=== PATIENT | male | born 1965 | race Caucasian/White ===

== ENCOUNTER 2019-06-27 10:34 | Emergency (ER) | payer OTHER, SELFPAY ==
[2019-06-27 10:54] VITALS: BP 158/98; PULSE 103; RESP 18; TEMP 36.6; O2SAT 97; BMI 31.4
--- NOTE | 2019-06-27 10:58 | XRR_ITS ---
PROCEDURE INFORMATION: Exam: XR Left Ankle Exam date and time: 06/27/2019 10:59 AM Age: 53 years old Clinical indication: Patient HX: Twisting injury to left foot/ankle yesterday. C/O pain worse with weight bearing. History of gout. ; Additional info: Trauma TECHNIQUE: Imaging protocol: XR Left ankle. Views: 3 or more views. COMPARISON: No relevant prior studies available. FINDINGS: Bones/joints: There is a subtle transverse lucency through the tip of the medial malleolus. There is no evidence of acute displaced fracture. The ankle mortise, talar dome and lateral process of the talus are intact. The base of the fifth metatarsal appears intact. There are mild degenerative changes at the tibiotalar joint. Moderate-sized calcaneal heel spur is noted at the Achilles insertion point. Soft tissues: There is mild circumferential soft tissue swelling. There is no significant ankle joint effusion. XR/XR ankle LT min 3V* [id number] IMPRESSION: 1. Subtle transverse lucency through the tip of the medial malleolus may reflect overlap versus subtle nondisplaced fracture. No other radiographic evidence of acute fracture. 2. Mild soft tissue swelling. 3. Achilles heel spur.
--- NOTE | 2019-06-27 10:58 | XRR_ITS ---
PROCEDURE INFORMATION: Exam: XR Left Foot Complete Exam date and time: 06/27/2019 10:59 AM Age: 53 years old Clinical indication: Patient HX: Twisting injury to left foot/ankle yesterday. C/O pain worse with weight bearing. History of gout. ; Additional info: Trauma TECHNIQUE: Imaging protocol: XR Left foot. Views: 3 or more views. COMPARISON: No relevant prior studies available. FINDINGS: Bones/joints: There is no evidence of acute displaced fracture. There is the suggestion of hallux valgus angulation with early bunion formation on nonweightbearing evaluation. There are mild degenerative changes at the 1st metatarsophalangeal joint. Subchondral cystic versus early erosive change is questioned along the medial aspect of the 1st metatarsal head. No other evidence of erosive change. Remaining joint space and alignment appears grossly preserved. Achilles heel spur is again noted. Soft tissues: There is moderate dorsal soft tissue swelling. XR/XR foot LT min 3V* [id number] IMPRESSION: 1. Dorsal soft tissue swelling without radiographic evidence of left foot fracture. 2. Mild degenerative change at the 1st metatarsophalangeal joint. There is mild subchondral cystic versus early erosive change along the head of the 1st metatarsal, which can be seen with inflammatory arthropathies to include gout.
--- NOTE | 2019-06-27 11:05 | ED_ITS ---
HPI - Extremity Injury (Lower) General: Chief Complaint: Extremity Injury, Lower Stated Complaint: Left foot pain Time Seen by Provider: 06/27/19 10:36 Source: patient Mode of arrival: ambulatory Limitations: no limitations History of Present Illness: HPI Narrative: Patient is a 53-year-old male who presents to ED today with complaints of left foot and ankle pain after an injury 2 days ago; patient states he twisted the ankle and then states his [employer] puppy ran into the ankle and knocked sideways; patient has been ambulatory with minimal weightbearing MD complaint: ankle injury and foot injury Onset (ago): day(s) Injury: Left: ankle and foot Type of Injury: inversion Place: home Severity: moderate Exacerbating factors: weight bearing, movement and palpation Associated symptoms: Reports no associated symptoms Other symptoms: none Review of Systems Musc: Reports: extremity pain, extremity swelling, joint pain and joint swelling Neuro: Denies: numbness in extremities or changes in sensation PFSH ED PFSH: Statuses (acute, chronic, etc) shown below reflect problem list status as previously entered and may not be historically accurate Social History Smoking and tobacco status: never smoked Physical Exam Const: COMMON NORMALS: no apparent distress, oriented x3, no limitations, alert and well nourished Extremity: OTHER: Patient has diffuse swelling throughout his left ankle and f oot; no redness, warmth, ecchymosis; seems to be mainly tender about his bilateral malleoli and fifth metatarsal; NV intact Neuro: COMMON NORMALS: oriented x3 SENSORIUM/ORIENTATION: Yes alert Course Vital Signs: Vital signs: Vital Signs Temperature 97.8 F 06/27/19 10:54 Pulse Rate 97 06/27/19 11:34 Respiratory Rate 16 06/27/19 11:34 Blood Pressure 136/98 06/27/19 11:34 Pulse Oximetry 95 06/27/19 11:34 MDM - Extremity Injury (Lower) Imaging Data^: L foot: Radiologist's impression: [address] [address] XRay Report Signed Patient: Adair Mcdonald Unit #: [id number] : 1965 Age/Sex: 53 / M ADM Date: 06/27/19 Loc: ER Room/Bed: Attending Dr: Ordering Provider/Ordering MD: Higgins,Sofía PA Date of Service: 06/27/19 Procedure(s): XR foot LT min 3V* [id number] Accession Number(s): [id number] Report Number: [id number] PROCEDURE INFORMATION: Exam: XR Left Foot Complete Exam date and time: 06/27/2019 10:59 AM Age: 53 years old Clinical indication: Patient HX: Twisting injury to left foot/ankle yesterday. C/O pain worse with weight bearing. History of gout. ; Additional info: Trauma TECHNIQUE: Imaging protocol: XR Left foot. Views: 3 or more views. COMPARISON: No relevant prior studies available. FINDINGS: Bones/joints: There is no evidence of acute displaced fracture. There is the suggestion of hallux valgus angulation with early bunion formation on nonweightbearing evaluation. There are mild degenerative changes at the 1st metatarsophalangeal joint. Subchondral cystic versus early erosive change is questioned along the medial aspect of the 1st metatarsal head. No other evidence of erosive change. Remaining joint space and alignment appears grossly preserved. Achilles heel spur is again noted. Soft tissues: There is moderate dorsal soft tissue swelling. XR/XR foot LT min 3V* [id number] IMPRESSION: 1. Dorsal soft tissue swelling without radiographic evidence of left foot fracture. 2. Mild degenerative change at the 1st metatarsophalangeal joint. There is mild subchondral cystic versus early erosive change along the head of the 1st metatarsal, which can be seen with inflammatory arthropathies to include gout. Dictated By: Zelalem Bonilla MD Signed By: Zelalem Bonilla MD Signed Date/Time: 06/27/19 1240 DD/ 1241 L ankle: Radiologist's impression: [address] [place] [address] XRay Report Signed with Addenda Patient: Adair Mcdonald Unit #: [id number] : 1965 Age/Sex: 53 / M ADM Date: 06/27/19 Loc: ER Room/Bed: Attending Dr: Ordering Provider/Ordering MD: Sofía Higgins Date of Service: 06/27/19 Procedure(s): XR ankle LT min 3V* [id number] Accession Number(s): [id number] Report Number: [id number] ADDENDUM XR/XR ankle LT min 3V* [id number] ADDENDUM: Comparison radiographs of the left ankle from 08/12/2017 are made available. The previously described subtle transverse lucency through the distal aspect of the medial malleolus is unchanged, compatible with overlap versus the sequela of remote trauma. No evidence of an acute osseous abnormality involving the left ankle. Addendum Dictated By: Zelalem Bonilla MD Addendum Signed By: Zelalem Bonilla MD Signed Date/Time: 06/27/19 1345 Addendum Cosigned By: PROCEDURE INFORMATION: Exam: XR Left Ankle Exam date and time: 06/27/2019 10:59 AM Age: 53 years old Clinical indication: Patient HX: Twisting injury to left foot/ankle yesterday. C/O pain worse with weight bearing. History of gout. ; Additional info: Trauma TECHNIQUE: Imaging protocol: XR Left ankle. Views: 3 or more views. COMPARISON: No relevant prior studies available. FINDINGS: Bones/joints: There is a subtle transverse lucency through the tip of the medial malleolus. There is no evidence of acute displaced fracture. The ankle mortise, talar dome and lateral process of the talus are intact. The base of the fifth metatarsal appears intact. There are mild degenerative changes at the tibiotalar joint. Moderate-sized calcaneal heel spur is noted at the Achilles insertion point. Soft tissues: There is mild circumferential soft tissue swelling. There is no significant ankle joint effusion. XR/XR ankle LT min 3V* [id number] IMPRESSION: 1. Subtle transverse lucency through the tip of the medial malleolus may reflect overlap versus subtle nondisplaced fracture. No other radiographic evidence of acute fracture. 2. Mild soft tissue swelling. 3. Achilles heel spur. Dictated By: Zelalem Bonilla MD Signed By: Zelalem Bonilla MD Signed Date/Time: 06/27/19 1236 DD/ 1237 Discharge Plan Discharge Patient Disposition: Home, Self-Care Clinical Impression: Ankle sprain and strain Condition: Stable Discharge Orders: Discharge Order (Routine); Ordered 06/27/19 Ordered By: Sofía Higgins Referrals: Ayo Springer APN [Primary Care Provider] - Discharge Activity: Increase activity as tolerated and Use walker/crutches as instructed Patient Instructions: Ankle Sprain (ED), RICE Therapy (ED) Discharge Date/Time: 06/27/19 11:30 Coding Level of Care Code ED Strap Buckler for Chg Fwd Exam Problem Focused
[2019-06-27 11:34] VITALS: BP 136/98; PULSE 97; RESP 16; O2SAT 95
== END 2019-06-27 11:30 | disposition home or self-care (01) ==
PROVIDERS: Emergency Provider Physician Assistant; Family Provider Nurse Practitioner Family; PCP Nurse Practitioner Family
DX: S93.402A Sprain of unspecified ligament of left ankle, initial encounter (principal); S96.912A Strain of unspecified muscle and tendon at ankle and foot level, left foot, initial encounter; X50.1XXA Overexertion from prolonged static or awkward postures, initial encounter
CPT/HCPCS: 73610; 73630; 99281; 99283

== ENCOUNTER 2020-12-22 15:58 | Emergency (ER) | payer OTHER, SELFPAY ==
[2020-12-22 17:43] VITALS: BP 151/96; PULSE 75; RESP 14; TEMP 36.7; O2SAT 97; BMI 35.2
--- NOTE | 2020-12-22 20:08 | XRR_ITS ---
PROCEDURE INFORMATION: Exam: XR Lumbosacral Spine Exam date and time: 12/22/2020 8:08 PM Age: 55 years old Clinical indication: Pain; Lumbago with sciatica; Right; Patient HX: HX of renal cancer; Additional info: Lumbar back pain radiating in right leg TECHNIQUE: Imaging protocol: XR of the lumbosacral spine. Views: 2 or 3 views. COMPARISON: CT Abdomen/Pelvis [facility] [address] 12/15/2014 11:24 AM FINDINGS: Bones/joints: The lumbar spine demonstrates moderate discogenic and apophyseal joint degenerative changes at multiple levels. No fractures. No aggressive lytic bone lesions. Mild leftward convex mid lumbar spine scoliosis. Soft tissues: Left abdomen surgical clips. XR/XR lumbar spine 2-3V* [id number] IMPRESSION: 1. No acute abnormality. 2. Negative for lumbar spine osseous malignancy.
--- NOTE | 2020-12-22 20:35 | ED_ITS ---
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 It seems to have worsened in the last week or so. This morning he got out of bed, and was supposed to go to work, but the pain dropped him to his knees. He had a call in. He comes in for investigation. He has not used any medication, as he does not like pain medication. No weakness. No significant paresthesias. No fever MD elicited complaint: back pain Pertinent past history: cancer (Renal) Onset (ago): week(s) Timing: intermittent and progressively worsening Severity: moderate Similar Symptoms Previously: No Quality: stabbing Location: lumbar spine Radiation: right upper leg Exacerbating factors: movement and walking Relieving factors: none Context: other Associated symptoms: Reports difficulty walking; Deny abdominal pain, dysuria, fecal incontinence, fever(s), nausea, tingling/numbness/burning or urinary frequency Review of Systems Const: Denies: fever(s) GI: Denies: abdominal pain, nausea or fecal incontinence : Denies: dysuria Neuro: Reports: difficulty walking [facility] ED PFSH: Family History (Updated 07/02/19 @ 12:18 by Tete Mckinley RN) Unknown No problems noted. Social History (Updated 07/02/19 @ 12:19 by Tete Mckinley RN) Smoking and tobacco status: never smoked Alcohol intake: never Marital status: Current occupational status: employed Physical Exam Const: COMMON NORMALS: no acute distress and patient oriented x3 GENERAL APPEARANCE: cooperative and comfortable Chest: COMMONS NORMALS: normal inspection of the chest Resp: COMMON NORMALS: normal respiratory effort and No use of accessory muscles Cardio: COMMON NORMALS: regular rate, regular rhythm and Peripheral pulses 2+ throughout RATE: regular rate RHYTHM: regular rhythm PERIPHERAL PULSES: Peripheral pulses 2+ throughout Back/Pelvis: OTHER: Midline L4-5 tenderness. Essentially negative straight leg raise testing. No deformity Neuro: COMMON NORMALS: patient oriented x3 Course Vital Signs: Vital signs: Vital Signs Temperature 98.0 F 12/22/20 17:43 Pulse Rate 75 12/22/20 17:43 Respiratory Rate 14 12/22/20 17:43 Blood Pressure 151/96 12/22/20 17:43 Pulse Oximetry 97 12/22/20 17:43 MDM - Back Pain/Injury MDM Narrative: Medical decision making narrative: X-ray shows a scoliotic curve, convex left with degenerative disc space narrowing on the right greater than left side at L4-L5. There is spondylitic change there. Likely the cause of his symptoms. Discharge Plan Discharge Patient Disposition: Home Clinical Impression: Lumbar radiculopathy Condition: Stable Prescriptions: New Medrol (Andrés) 4 mg tablets,dose pack See Rx Instructions .ROUTE .COMPLEX Qty: 21 RF: 0 methocarbamol 750 mg tablet 750 mg PO TID PRN (Reason: pain) Qty: 14 RF: 0 Discharge Orders: Discharge ED (Routine); Ordered 12/22/20 Ordered By: Freddie Bullard Referrals: Racheal Rollins APN [Primary Care Provider] - 4-7 days Patient Instructions: Lumbar Radiculopathy (ED) Activity Restrictions/Additional Instructions: Return to the emergency department for significant weakness of your lower extremities, loss of sensation near your groin or genital region, inability to control your bowel or bladder function, or other concerning symptoms. Medication as directed. Follow-up with your doctor, as further outpatient tests may be needed. Coding Level of Care Code ED Taping Supervisor for Chg Fwd Exam Expanded Problem Focused
== END 2020-12-22 20:58 | disposition home or self-care (01) ==
PROVIDERS: Emergency Provider Emergency Medicine; PCP Nurse Practitioner Family
DX: M54.16 Radiculopathy, lumbar region (principal)
CPT/HCPCS: 72100; 99282

== ENCOUNTER 2021-02-05 12:42 | Outpatient (CLI) | payer SELFPAY ==
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
== END 2021-02-05 12:43 | disposition home or self-care (01) ==
LOC: RAD 12:58
PROVIDERS: PCP Nurse Practitioner Family; Visit Provider Nurse Practitioner Family
DX: M25.511 Pain in right shoulder (principal); V89.2XXA Person injured in unspecified motor-vehicle accident, traffic, initial encounter; M19.012 Primary osteoarthritis, left shoulder; M50.323 Other cervical disc degeneration at C6-C7 level
CPT/HCPCS: 72040; 73030

== ENCOUNTER → 2021-03-22 10:24 | Outpatient (BNVA) | payer OTHER, SELFPAY | PROVIDERS: PCP Nurse Practitioner Family; Referring Provider Radiology Diagnostic Radiology; Visit Provider Orthopaedic Surgery | DX: M54.2 Cervicalgia (principal) | CPT/HCPCS: 72050 ==

== ENCOUNTER 2021-06-11 16:58 | Emergency (ER) | payer OTHER, SELFPAY ==
--- NOTE | 2021-06-11 17:03 | XRR_ITS ---
PROCEDURE INFORMATION: Exam: XR Lumbosacral Spine Exam date and time: 06/11/2021 5:03 PM Age: 55 years old Clinical indication: Injury or trauma; Fall; Blunt trauma (contusions or hematomas); Additional info: Fall, radiating pain to right hip TECHNIQUE: Imaging protocol: XR of the lumbosacral spine. Views: 2 or 3 views. COMPARISON: CR XR lumbar spine 2-3V* [id number] 12/22/2020 8:17 PM FINDINGS: Bones/joints: There is mild scoliosis concave to the right. There is decreased height of the L3-L4 disc space with prominent osteophytes on the right side not significantly changed. No lumbar fracture is identified. There does appear to be new fracture at the S1 level new compared with 12/22/2020. Please correlate with the patient's clinical symptoms. Soft tissues: There are surgical clips on the left side of the abdomen presumably from nephrectomy. XR/XR lumbar spine 2-3V* [id number] IMPRESSION: 1. Degenerative changes. 2. Suspicious for coccygeal fracture.
--- NOTE | 2021-06-11 17:03 | XRR_ITS ---
PROCEDURE INFORMATION: Exam: XR Right Hip Exam date and time: 06/11/2021 5:03 PM Age: 55 years old Clinical indication: Injury or trauma; Fall; Blunt trauma (contusions or hematomas); Right; Hip; Additional info: Fall, pain, include pelvis TECHNIQUE: Imaging protocol: XR Right hip. Views: 1 view hip with pelvis when performed. COMPARISON: CT Abdomen/[place]elvis o [id number] 12/15/2014 11:24 AM FINDINGS: Bones/joints: Degenerative changes in the right hip with some spurring from the acetabular margins. No fracture is identified. Soft tissues: Unremarkable. XR/XR hip RT 2-3V wo/w pel* [id number] IMPRESSION: 1. Degenerative changes. No fracture is identified. 2. No fracture is identified.
[2021-06-11 17:42] VITALS: PULSE 82; RESP 16; TEMP 36.7; O2SAT 98
--- NOTE | 2021-06-11 19:15 | ED_ITS ---
HPI - Fall General: Chief Complaint: Fall Stated Complaint: Fell and R hip in alot of pain Time Seen by Provider: 06/11/21 19:15 History of Present Illness: HPI Narrative: 55-year-old male patient comes in for injury secondary to a fall. Patient works for the [employer] slipped on some ice last night landing on his buttock and right side. Patient has had pain and discomfort to the right hip area. Patient is ambulatory. Patient appears well. Patient appears in mild pain. Review of Systems Musc: Reports: joint pain (Right hip pain) PFSH ED PFSH: Family History Unknown No problems noted. Social History (Reviewed 03/22/21 @ 10: by Shahrzad Hayward LPN) Smoking and tobacco status: never smoked Alcohol intake: never Marital status: Current occupational status: employed Physical Exam Const: COMMON NORMALS: healthy appearing Resp: COMMON NORMALS: normal respiratory effort Cardio: COMMON NORMALS: regular rate and regular rhythm RATE: regular rate RHYTHM: regular rhythm Back/Pelvis: THORACIC SPINE/UPPER BACK: No thoracic spinal tenderness LUMBAR SPINE/LOWER BACK: No lumbar spinal tenderness SACRUM: tenderness Extremity: RIGHT LOWER EXTREMITY: Yes hip joint Right hip: Yes inspection and Yes palpation (No palpable tenderness to the hip) Course Vital Signs: Vital signs: Vital Signs Temperature 98.1 F 06/11/21 17:42 Pulse Rate 82 06/11/21 17:42 Respiratory Rate 16 06/11/21 19:27 Pulse Oximetry 98 06/11/21 17:42 MDM - Fall MDM Narrative: Medical decision making narrative: 55-year-old male patient comes in today with injury secondary to a slip on the ice and fall to the ground. Patient is ambulatory. Patient reports some right hip discomfort. On exam patient has good range of motion of the hip. Patient does have some sacral tenderness. Vital signs are normal. Differential diagnosis includes fracture, contusion, sprain. X-ray of the hip was unremarkable. X-ray of the LS-spine noted a possible coccygeal fracture. I reviewed this with patient reported no prior injury to the coccyx. I believe patient might have a new coccygeal fracture. I reviewed recommendations of treatment with supportive seating and acetaminophen for pain. Patient is unable to take ibuprofen due to a prior renal injury. Patient reported understanding and agreed to plan need for follow-up or return to the ER. Discharge Plan Discharge Patient Disposition: Home Clinical Impression: Closed coccygeal fracture Qualifiers: Encounter type: initial encounter Qualified Code(s): S32.2XXA - Fracture of coccyx, initial encounter for closed fracture Condition: Stable Discharge Orders: Discharge ED (Routine); Ordered 06/11/21 Ordered By: Juliocesar Young Referrals: Racheal Rollins APN [Primary Care Provider] - Discharge Diet: Usual diet Discharge Activity: Increase activity as tolerated Patient Instructions: Coccyx Injury (ED) Activity Restrictions/Additional Instructions: Acetaminophen as needed for pain. Use a good cushion. Follow-up with primary care for further instruction. Return to the ER for new concerns. Coding Level of Care Code ED Client Reporting Associate for Lala Mahan
[2021-06-11 19:27] VITALS: RESP 16
== END 2021-06-11 19:28 | disposition home or self-care (01) ==
PROVIDERS: Emergency Provider Nurse Practitioner Family; PCP Nurse Practitioner Family
DX: S32.2XXA Fracture of coccyx, initial encounter for closed fracture (principal); W00.0XXA Fall on same level due to ice and snow, initial encounter
CPT/HCPCS: 72100; 73502; 99282

== ENCOUNTER 2021-08-08 12:06 | Emergency (ER) | payer OTHER, SELFPAY ==
[2021-08-08 12:16] VITALS: BP 149/91; PULSE 79; RESP 18; TEMP 36.8; O2SAT 98; BMI 33.4
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
--- NOTE | 2021-08-08 12:58 | PC.NURSE ---
Patient stated that incident was not workers comp and that it was FMLA. Per Margarita Teixeira LPN.
== END 2021-08-08 13:41 | disposition home or self-care (01) ==
PROVIDERS: Emergency Provider Nurse Practitioner Family; PCP Nurse Practitioner Family
DX: S39.012A Strain of muscle, fascia and tendon of lower back, initial encounter (principal); S29.012A Strain of muscle and tendon of back wall of thorax, initial encounter; X58.XXXA Exposure to other specified factors, initial encounter; Y99.0 Civilian activity done for income or pay
CPT/HCPCS: 72040; 72072; 99282

== ENCOUNTER 2022-01-07 15:42 | Outpatient (CLI) | payer OTHER, SELFPAY ==
--- NOTE | 2022-01-07 16:24 | XRR_ITS ---
PROCEDURE INFORMATION: Exam: XR Right Foot Exam date and time: 01/07/2022 4:23 PM Age: 56 years old Clinical indication: Pain and injury or trauma; Fall; Blunt trauma; Injury details: HX of renal cancer; Patient HX: --pain top of right foot, worse last 2 days after PT got foot caught on board and fell; Additional info: Right foot pain TECHNIQUE: Imaging protocol: Radiologic exam of the Right foot. Views: 3 or more views. COMPARISON: CR Foot 3 views, RIGHT* [id number] 11/11/2017 1:35 PM FINDINGS: Bones/joints: Osseous structures are intact. Negative for fracture. Similar appearance of mixed lucent/sclerotic change along the medial aspect of the 1st metatarsal head. Soft tissues: Normal. XR/XR foot RT min 3V* [id number] IMPRESSION: No acute findings.
== END 2022-01-07 15:43 | disposition home or self-care (01) ==
PROVIDERS: PCP Nurse Practitioner Family; Visit Provider Nurse Practitioner Family
DX: M79.671 Pain in right foot (principal)
CPT/HCPCS: 73630

== ENCOUNTER 2022-12-17 15:24 | Emergency (ER) | payer OTHER, SELFPAY ==
[2022-12-17 15:33] VITALS: BP 147/90; PULSE 81; RESP 18; TEMP 36.4; O2SAT 97; BMI 31.3
--- NOTE | 2022-12-17 17:22 | W.ED.ANIMALB ---
HPI - Animal Bite General: Chief Complaint: Animal Bite Stated Complaint: stung on right side of face by wasp Time Seen by Provider: 12/17/22 16:30 Source: patient Mode of arrival: ambulatory History of Present Illness: 57-year-old male presents emergency room states he was stung on the right cheek with a wasp. No difficulties speaking swallowing or breathing no wheezing he did take some hjdo-ddt-qxcsiup Benadryl at home for it. Onset (ago): minute(s) Pain description: burning Associated symptoms: Deny bleeding, cough, diaphoresis, erythema, headache(s), numbness, rash, short of breath, syncope or weakness Review of Systems Const: Denies: diaphoresis ENMT: Denies: throat pain, ear or mastoid pain or nasal congestion Card: Denies: chest pain, palpitations or syncope Resp: Denies: dyspnea, productive cough or non-productive cough GI: Denies: abdominal pain, nausea or vomiting : Denies: flank pain, dysuria, urinary frequency or urinary urgency Skin/Breast: Denies: rash or pruritus Neuro: Denies: headache(s) PFSH ED PFSH: Family History Unknown No problems noted. Social History Smoking and tobacco status: never smoked Alcohol intake: never Substance/Drug Use: never Marital status: Current occupational status: employed Physical Exam Const: GENERAL APPEARANCE: cooperative and comfortable ORIENTATION/CONSCIOUSNESS: Yes awake, Yes oriented to person, Yes oriented to place and Yes oriented to time HENMT: COMMON NORMALS: normocephalic, atraumatic and hearing grossly normal bilaterally HEAD & SCALP: normocephalic and atraumatic Resp: COMMON NORMALS: normal respiratory effort, No retractions, No use of accessory muscles and clear to auscultation bilaterally AUSCULTATION: clear to auscultation bilaterally Cardio: COMMON NORMALS: regular rate, regular rhythm and No murmurs present (Cardio) RATE: regular rate RHYTHM: regular rhythm Extremity: COMMON NORMALS: normal to inspection, capillary refill normal, no clubbing, cyanosis or edema, no calf tenderness and no pedal edema Neuro: SENSORIUM/ORIENTATION: Yes oriented to person, Yes oriented to place and Yes oriented to time Skin: COMMON NORMALS: no rashes or lesions noted GENERAL SKIN EXAM: no rashes or lesions noted and no erythema Course Vital Signs: Vital signs: Vital Signs Temperature 97.5 F L 12/17/22 15:33 Pulse Rate 81 12/17/22 15:33 Respiratory Rate 18 12/17/22 15:33 Blood Pressure 147/90 12/17/22 15:33 Pulse Oximetry 97 12/17/22 15:33 Oxygen Delivery Me thod Room Air 12/17/22 15:33 MDM - Animal Bite Medical Decision Making Localized reaction to an insect bite. We will give dexamethasone single dose start oral steroid taper tomorrow use titk-zhg-jpeoosq Benadryl as needed can apply ice. Follow-up as needed Medical Records I reviewed the patient's medical records. Lab Data I reviewed the patient's lab results. Discharge Plan Discharge Patient Disposition: Home Clinical Impression: Insect bite Condition: Stable Prescriptions: New Medrol (Andrés) 4 mg tablets,dose pack See Rx Instructions .ROUTE .COMPLEX Qty: 21 0RF Rx Instructions: orally per package directions No Action Celebrex 100 mg capsule 100 mg PO BID Qty: 20 0RF cyclobenzaprine 5 mg tablet 5 mg PO TID PRN (Reason: muscle spasm) Qty: 10 0RF Discharge Orders: Discharge ED (Routine); Ordered 12/17/22 Ordered By: Sandip Barry Referrals: Racheal Rollins APN [Primary Care Provider] - Discharge Diet: Usual diet Discharge Activity: Resume usual activity Patient Instructions: Insect Bite or Sting (ED), Opioid Safety, Pain Management Activity Restrictions/Additional Instructions: You are seen today after an insect bite on the right cheek. You can use ice and qhvs-ooy-vlgnmyb antihistamines such as Tylenol or cetirizine. You were given a single dose of IM steroid and given a prescription for oral steroids to begin tomorrow. Follow-up with your primary care doctor as needed. Is likely the area will be swollen and tender to the touch for the next several days. Coding Level of Care Code ED Deputy Chief Executive for Lala Mahan
[2022-12-17] MEDS: dexamethasone 10 mg/mL INJ IM (17:58)
== END 2022-12-17 18:02 | disposition home or self-care (01) ==
PROVIDERS: Emergency Provider Family Medicine; PCP Nurse Practitioner Family
DX: T63.461A Toxic effect of venom of wasps, accidental (unintentional), initial encounter (principal)
CPT/HCPCS: 96372; 99284; J1100

== ENCOUNTER 2023-05-31 08:00 | Emergency (ER) | payer OTHER, SELFPAY ==
[2023-05-31 08:00] VITALS: BP 148/91; PULSE 87; RESP 16; TEMP 36.8; O2SAT 94
--- NOTE | 2023-05-31 08:17 | XRR_ITS ---
PROCEDURE INFORMATION: Exam: XR Left Knee Exam date and time: 05/31/2023 8:39 AM Age: 57 years old Clinical indication: Pain; Knee; Left TECHNIQUE: Imaging protocol: Radiologic exam of the left knee. Views: 3 views. COMPARISON: CR (LOW EXM, ) 05/31/2023 8:39 AM FINDINGS: Bones/joints: There are irregular lucencies seen traversing the proximal aspect of the inferior anterior patella bone spur.. This finding is suspicious for nondisplaced fracture. Smaller bone spurs seen in the anterior superior aspect of the patella. Soft tissues: Unremarkable XR/XR knee LT 3V* [id number] IMPRESSION: 1. Transverse nondisplaced fracture proximal aspect anterior infrapatellar bone spur 2. Otherwise negative examination
--- NOTE | 2023-05-31 08:17 | XRR_ITS ---
PROCEDURE INFORMATION: Exam: XR Left Ankle Exam date and time: 05/31/2023 8:39 AM Age: 57 years old Clinical indication: Pain; Ankle; Left TECHNIQUE: Imaging protocol: Radiologic exam of the left ankle. Views: 3 or more views. COMPARISON: CR (LOW EXM, ) 05/31/2023 8:39 AM FINDINGS: Bones/joints: Negative for acute bony abnormality. Soft tissues: Normal. XR/XR ankle LT min 3V* [id number] IMPRESSION: No acute findings.
--- NOTE | 2023-05-31 08:17 | XRR_ITS ---
PROCEDURE INFORMATION: Exam: XR Right Ankle Exam date and time: 05/31/2023 8:43 AM Age: 57 years old Clinical indication: Pain; Ankle; Right TECHNIQUE: Imaging protocol: Radiologic exam of the right ankle. Views: 3 or more views. COMPARISON: CR XR foot RT min 3V* [id number] 01/07/2022 4:23 PM FINDINGS: Bones/joints: Normal. Soft tissues: Normal. XR/XR ankle RT min 3V* [id number] IMPRESSION: Negative for acute bony abnormality.
--- NOTE | 2023-05-31 08:42 | W.ED.EXTPRO ---
HPI - Extremity Problem General: Chief complaint: Extremity Problem,Nontraumatic Stated complaint: KNEE PAIN Time Seen by Provider: 05/31/23 08:01 Source: patient Mode of arrival: EMS History of Present Illness: 57-year-old male presents to the emergency room with complaints of multiple joint pain in the lower extremities. He is complaining of left foot right ankle and foot pain as well as left knee. No trauma. He has noticed redness on the left foot. Since that is affecting both lower extremities he has not been able to walk this morning is been progressively worsening he is taken some home remedies for gout but not any prescription remedies MD Complaint: joint pain Pain Consistency: constant Location: left, right and lower extremity Quality: sharp Relieving factors: nothing Exacerbating factors: nothing Associated symptoms: Deny chest pain, fever(s) or rash Review of Systems Const: Denies: fever(s) or chills Card: Denies: chest pain Resp: Denies: dyspnea GI: Denies: abdominal pain : Denies: dysuria, urinary frequency or urinary urgency Musc: Denies: neck pain or back pain Skin/Breast: Denies: rash PFSH ED PFSH: Family History Unknown No problems noted. Social History Smoking and tobacco/nicotine status: never used tobacco/nicotine Alcohol intake: never Substance/Drug Use: never Marital status: Current occupational status: employed Physical Exam Const: GENERAL APPEARANCE: cooperative and comfortable ORIENTATION/CONSCIOUSNESS: Yes awake, Yes oriented to person, Yes oriented to place and Yes oriented to time HENMT: COMMON NORMALS: normocephalic, atraumatic and hearing grossly normal bilaterally HEAD & SCALP: normocephalic and atraumatic Resp: COMMON NORMALS: normal respiratory effort, No retractions, No use of accessory muscles and clear to auscultation bilaterally AUSCULTATION: clear to auscultation bilaterally Cardio: COMMON NORMALS: regular rate, regular rhythm and No murmurs present (Cardio) RATE: regular rate RHYTHM: regular rhythm Extremity: OTHER: Mild erythema and exquisite tenderness to touch on the right foot over the lateral portion any movement of the forefoot at the tarsometatarsal joint causes significant discomfort. Neuro: SENSORIUM/ORIENTATION: Yes oriented to person, Yes oriented to place and Yes oriented to time Skin: COMMON NORMALS: no rashes or lesions noted GENERAL SKIN EXAM: no rashes or lesions noted Course Vital Signs: Vital signs: Vital Signs Temperature 98.3 F 05/31/23 08:00 Pulse Rate 87 05/31/23 08:00 Respiratory Rate 16 05/31/23 08:00 Blood Pressure 148/91 05/31/23 08:00 Pulse Oximetry 94 05/31/23 08:00 Oxygen Delivery Me thod Room Air 05/31/23 08:00 MDM - Extremity (Nontraumatic) Medical Decision Making Peers to be an old fracture of the left patella but no other acute fractures patient has exquisite tenderness with any movement or even light touch to the affected joints that he outlined small joint effusions present acute Zhen arthritis treat with steroids he cannot use anti-inflammatories because of his chronic kidney disease give tramadol for pain as well follow-up with his primary care doctor Medical Records I reviewed the patient's medical records. Lab Data I reviewed the patient's lab results. XR interpretation done by ED provider, pending radiology final review Discharge Plan Discharge Patient Disposition: Home Clinical Impression: Gouty arthritis Condition: Stable Prescriptions: New prednisone 20 mg tablet 20 mg PO TID Qty: 15 0RF Rx Instructions: 1 p.o. 3 times daily x3 days, 1 p.o. twice daily x2 days, 1 p.o. daily x2 days tramadol 50 mg tablet 50 mg PO Q6H PRN (Reason: pain) Qty: 20 0RF No Action Celebrex 100 mg capsule 100 mg PO BID Qty: 20 0RF cyclobenzaprine 5 mg tablet 5 mg PO TID PRN (Reason: muscle spasm) Qty: 10 0RF Medrol (Andrés) 4 mg tablets,dose pack See Rx Instructions .ROUTE .COMPLEX Qty: 21 0RF Rx Instructions: orally per package directions Discharge Orders: Discharge ED (Routine); Ordered 05/31/23 Ordered By: Sandip Barry Referrals: Racheal Rollins APN [Primary Care Provider] - Discharge Diet: Usual diet Discharge Activity: Increase activity as tolerated Patient Instructions: Gout (ED), Opioid Safety, Pain Management Activity Restrictions/Additional Instructions: [facility]. Please realize this is an emergency room and that we are providing you with a medical screening exam and this may not be complete and all inclusive of all the testing and or work up that you may need to determine your ailment or severity of your illness. It is very important that you follow up as instructed or that you return to the Emergency Department should you have concerns or if your condition changes or worsens in any way. You are seen today for joint aches and pains. He did appear to have an old fracture of the left patella but otherwise no acute injury or fractures are noted on the x-rays. Suspect this is a gouty flare. Recommend that you use steroid taper starting this evening he has tramadol as needed for pain. Avoid ibuprofen or indomethacin due to chronic kidney disease. Follow-up with your primary care doctor if not improving. Coding Level of Care Code ED Electrical Tester for Lala Mahan
[2023-05-31 09:18] VITALS: BP 148/91; PULSE 87; RESP 16; TEMP 36.8; O2SAT 94
== END 2023-05-31 09:22 | disposition home or self-care (01) ==
PROVIDERS: Emergency Provider Family Medicine; PCP Nurse Practitioner Family
DX: M10.9 Gout, unspecified (principal)
CPT/HCPCS: 73562; 73610; 96374; 99284; E0114; J2930

== ENCOUNTER 2025-05-20 11:08 | Emergency (ER) | payer SELFPAY ==
--- OUTSIDE RECORDS SUMMARY | 2025-05-20 11:16 | XMS_ITS | Patient Health Record ---
Author Organization [facility] Address [address] [place] [address] Care Team Providers Care Camera Tuning Engineer Name Role Phone [facility] Primary Care Provider [phone] [facility] Unavailable Unavailable Allergies Allergen (clinical drug ingredient) Drug/Non Drug Allergy documented on EMR Reaction Allergy Type Onset Date Status erythromycin Erythromycin Unknown Drug Allergy A ctive Penicillin Unknown Drug Allergy Active Reason For Referral No Information Medications Medication SIG (Take, Route, Frequency, Duration) Notes Start Date End Date Status Acetaminophen 500 MG Tablet 1 tablet as needed Orally every 6 hrs Active Testosterone Cypionate 200 mg/mL Solution inject 1ML INTRAMUSCULARLY EVERY TWO WEEKS in clinic for 28 days; Duration: 14 02/10/2023 Active Gabapentin 300 MG Capsule 1 capsule Oral ly twice a day; Duration: 30 days Active traMADol HCl 50 MG Tablet 1 tab Orally q 4 hours prn severe pain; Duration: 30 days 02/17/2023 Active Social History Tobacco Use: Social History Observation Description Date Details (start date - stop date) Never Smoker NA - NA Social History Tobacco Use: Social Info Question Answer Notes xTobacco Use/Smoking Are you a nonsmoker Section Notes: 12/18/21 12/18/21 06-12-22 PHQ9 12/18/21 06-12-22 PHQ9 Tobacco - Nonsmoker Alcohol - never Caffeine - daily soda and energy drink once or twice a week Depression screen completed 11/18/2022 score 1 Tobacco - Nonsmoker Alcohol - never Caffeine - daily soda and energy drink once or twice a week Depression screen completed 11/18/2022 score 1 Tobacco - Nonsmoker Alcohol - never Caffeine - daily soda and energy drink once or twice a week Depression screen completed 11/18/2022 score 1 Tobacco - Nonsmoker Alcohol - never Caffeine - daily soda and energy drink once or twice a week Depression screen completed 11/18/2022 score 1 Tobacco - Nonsmoker Alcohol - never Caffeine - daily soda and energy drink once or twice a week 12/18/21 12/18/21 12/18/21 12/18/21 12/18/21 Problems Problem Type SNOMED Code ICD Code Onset Dates Problem Status W/U Status Risk Notes Problem Testicular hypofunction (536872120) Testicular hypofunction (E29.1) Active confirmed Problem Neck pain (05860257) Neck pain (M54.2) Active confirmed Problem Hearing loss (61839430) Hearing loss, unspecified hearing loss type, unspecified laterality (H91.90) Active confirmed Problem Sciatica (24109839) Acute right-sided low back pain with right-sided sciatica (M54.41) Active confirmed Problem Displacement of cervical intervertebral disc without myelopathy (51245530) Bulging of cervical intervertebral disc (M50.20) Active confirmed Problem Muscle spasm (49661375) Muscle spasm (M62.838) Active confirmed Problem Gout (20107739) Acute gout of right foot, unspecified cause (M10.9) Active confirmed Problem Pain in thoracic spine (037397560) Acute bilateral thoracic back pain (M54.6) Active confirmed Problem Gout (03897818) Acute gout of left foot, unspecified cause (M10.9) Active confirmed Problem Shoulder joint pain (525332482) Right shoulder pain, unspecified chronicity (M25.511) Active confirmed Problem Malignant tumor of kidney (785423898) Renal cell carcinoma of left kidney (C64.2) Active confirmed Problem Degeneration of lumbar intervertebral disc (75004738) Disc degeneration, lumbar (M51.36) Active confirmed Problem Primary malignant neoplasm of kidney (41839151) Malignant neoplasm of kidney excluding renal pelvis, unspecified laterality (C64.9) Active confirmed Problem Arthropathy of lumbar facet joint (disorder) (470508015) Facet arthropathy, lumbar (M47.816) Active confirmed Problem MRI Scan Abnormal (580791115) Abnormal MRI (R93.89) Active confirmed Problem Primary osteoarthritis (360364325) Primary osteoarthritis involving multiple joints (M15.9) Active confirmed Plan Of Treatment Pending Test Test Name Order Date Electrocardiogram 12 Lead Tracing (EKG)- 11972 10/08/2021 Insurance Providers Payer Name Payer Address Payer Phone Subscriber Number Group Number Insured Name Patient Relationship to Insured Coverage Start Date Coverage End Date [facility] [employer] [address] [address] [place] [address] [id number] Self - patient is the insured Medications Administered Medication Instructions Date of Administration Dosage Notes DEPO-Medrol 08/14/2021 40 mg [facility]: [address]-41 Patient tolerated well, advised to wait 20 min at clinic DEPO-Medrol 12/18/2021 40 mg [id number] [id number] Depo-Testosterone 09/17/2021 200 mg Vial br ought to clinic by patient from pharmacy [facility] [id number] Pt tolerated well/instructed to wait 20 min dexAMETHasone 12/18/2021 4 mg [facility]-[id number] 239-30 dexAMETHasone 08/14/2021 4 mg [facility]: 03911-755-77 patient tolerated well, advised to wait 20 min at clinic dexAMETHasone 06/12/2022 8 mg [facility]-19880-7 239-30 Patient tolerated well IM - Patient Supplied Med 01/14/2022 testosterone 200mg/ml given IM in left hip. patient tolerated well [id number] IM - Patient Supplied Med 02/19/2022 testosterone 200mg/ml given in right hip, patient tolerated well, [id number] IM - Patient Supplied Med 08/07/2022 [id number] Patient tolerated well. [id number] IM - Patient Supplied Med 12/02/2022 Testosterone 200mg given in left hip. Patient tolerated well. [id number] Ketorolac Tromethamine 08/14/2021 60 mg ND: [id number] Patient tolerated well, advised to wait 20 min at clinic Ketorolac Tromethamine 12/18/2021 60 mg nd [id number] Ketorolac Tromethamine 01/14/2022 60 mg nd [id number] Ketorolac Tromethamine 01/24/2022 60 mg [id number] Ketorolac Tromethamine 06/12/2022 60 mg [id number] Patient tolerated well Testosterone 08/14/2021 200 mg medicine bro ught to clinic by patient from pharmacy for injection. Patient tolerated well, advised to wait 20 min at clinic Testosterone 11/09/2021 200 mg ND: [id number] Medication brought to clinic with patient from pharmacy. Patient tolerated well, advised to wait 20 min at clinic Testosterone Cypionate 02/17/2023 200 ug vi al brought to clinic by patient/pt tolerated well/instructed to wait 20 min Medical (General) History Medical History History ICD Code chronic renal insufficiency Gout renal cell cancer Back Trouble Surgical History Surgery Date(Month/Year) nephrectomy left 2009 Cervical fusion c 5,6,7 2021 Hospitalization History Reason Date(Month/Year) Surgical Hx
--- OUTSIDE RECORDS SUMMARY | 2025-05-20 11:16 | XMS_ITS | Clinical Summary ---
Author Organization [facility] Facility Address [address] [place] [address] Care Team Providers Care Sex Crimes Detective Name Role Phone Unavailable Primary Care Provider Unavailabl e Social History Tobacco Use Types Packs/Day Years Used Date Smoking Tobacco: Never Sex and Gender Information Value Date Recorded Sex Assigned at Not on file Legal Sex Male 12:44 PM EST Gender Identity Not on file Sexual Orientation Not on file Plan of Treatment Health Maintenance Due Date Last Done Comments Hepatitis B Vaccine (1 of 3 - 19+ 3-dose series) 08/20 Pneumococcal Vaccine: 50+ Years (1 of 2 - PCV) 987 Colorectal Cancer Screening: Annual FOBT 08/20/2016 Colorectal Cancer Screening: Colonoscopy 08/20/2016 Colorectal Cancer Screening: Sigmoidoscopy 08/20/2016 Influenza Vaccine (#1) 2025 Insurance RR [address] [place] [address] [facility]
--- OUTSIDE RECORDS SUMMARY | 2025-05-20 11:16 | XMS_ITS | Encounter Summary ---
Author Organization [place] [facility], [facility] Address [address] [place] [address] Phone Care Team Providers Care Administrative Services Coordinator Name Role Phone Unavailable Primary Care Provider Unavailabl e Encounter Details Date Type Department Care Team (Late st Contact Info) Description 05/29/2021 Orders Only [facility] [address] [place] [address] Renal insufficiency; Renal cell carcinoma <Unspecified side> (HCC) Social History Tobacco Use Types Packs/Day Years Used Date Smoking Tobacco: Never Sex and Gender Information Value Date Recorded Sex Assigned at Not on file Legal Sex Male 12:44 PM EST Gender Identity Not on file Sexual Orientation Not on file documented as of this encounter Plan of Treatment Not on file documented as of this encounter Visit Diagnoses Diagnosis Renal insufficiency Renal cell carcinoma <Unspecified side> (HCC) documented in this encounter
--- OUTSIDE RECORDS SUMMARY | 2025-05-20 11:16 | XMS_ITS | Clinical Summary ---
Author Organization [facility] Address [address] 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
[2025-05-20 11:45] VITALS: BP 164/114; PULSE 81; RESP 14; TEMP 36.8; O2SAT 95; BMI 33.4
--- NOTE | 2025-05-20 12:39 | XRR_ITS ---
PROCEDURE INFORMATION: Exam: XR Cervical Spine Exam date and time: 05/20/2025 12:53 PM Age: 59 years old Clinical indication: Neck pain; Additional info: Neck pain, HX of acdf TECHNIQUE: Imaging protocol: Radiologic exam of the cervical spine. Views: 2 or 3 views. COMPARISON: CR XR cervical spine 3V* [id number] 08/08/2021 12:36 PM FINDINGS: Bones/joints: AP and lateral views were generated. Since last examination the patient has undergone C5-C6 and C6-C7 interbody fusion with stabilization of these levels ventral fusion plate. Graft cages are noted in both disc spaces and appear to be appropriately positioned. No residual disc space radiolucency this appearance suggesting successful fusion. There is slight degenerative anterolisthesis at C7-T1 where stable, [id number] disc space narrowing is noted. Remaining disc spaces appear normal in height and are unchanged. There is no acute fracture, lytic, or blastic lesion. Fomk-vgpufvj-pbbl-right hypertrophic facet changes are appearance at C3-C4 and C4-C5. Right-sided C5-C6 facet hypertrophy is also noted. No significant progression of the facet arthropathy is apparent. Soft tissues: Paraspinal soft tissues appear normal. XR/XR cervical spine 3V* [id number] IMPRESSION: 1. Solid interbody fusion at C5-C6 and C6-C7. 2. Stable C7-T1 moderate disc space narrowing with new minimal anterolisthesis. 3. Stable level cervical facet arthropathy as noted.
--- NOTE | 2025-05-20 13:23 | W.ED.NECK ---
HPI - Neck Pain/Injury General: Chief Complaint: Neck Pain/Injury Stated Complaint: neck pain Time Seen by Provider: 05/20/25 12:14 Source: patient Mode of arrival: ambulatory Limitations: no limitations History of Present Illness: Patient is a 59-year-old male presents emergency department complaining of neck pain. History of ACDF, he has pain that he describes as stiffness and has limited range of motion of the neck, primarily with lateral rotation. No visual changes, no focal neurological deficit otherwise. Has not tried any medications at home. Denies any trauma. Vital stable at this time, overall nontoxic-appearing. MD complaint: neck pain Onset (ago): hour(s) Place: home Radiation: right lateral and left lateral Severity: moderate Quality: other (Stiffness) Associated symptoms: Denies headache(s) or nausea Related Data Previous Rx's ?Medication ?Instructions ?Recorded methylprednisolone 4 mg tablets in See Rx Instructions PO .COMPLEX 12/17/22 a dose pack (Medrol (Andrés)) #21 ea prednisone 20 mg tablet 20 mg PO TID #15 tabs 05/31/23 tramadol 50 mg tablet 50 mg PO Q6H PRN pain #20 tabs 05/31/23 ketorolac 10 mg tablet 10 mg PO Q8H PRN pain 5 days #15 05/20/25 tabs methocarbamol 750 mg tablet 750 mg PO Q8H 5 days #15 tabs 05/20/25 Allergies Allergy/AdvReac Type Severity Reaction Status Date / Time amoxicillin Allergy ALGY-Swell Verified 05/20/25 11:51 Lip/Tongue/Throat Penicillins Allergy ALGY-Swell Verified 05/20/25 11:51 Lip/Tongue/Throat Review of Systems General: Reports: 10 or more systems reviewed and unremarkable except in HPI and below Const: Denies: fever(s) or chills Eyes: Denies: change in vision Card: Denies: chest pain Resp: Denies: dyspnea or productive cough GI: Denies: abdominal pain, nausea, vomiting or diarrhea : Denies: flank pain Musc: Reports: neck pain and limited range of motion; Denies: back pain, extremity pain, extremity swelling, joint pain, joint swelling, joint redness, joint warmth or muscle weakness Skin/Breast: Denies: rash Neuro: Denies: headache(s), numbness in extremities or weakness in extremities PFSH ED PFSH: Family History Unknown No problems noted. Social History Smoking and tobacco/nicotine status: never used tobacco/nicotine Alcohol intake: never Substance/Drug Use: never Marital status: Current occupational status: employed Physical Exam Const: COMMON NORMALS: no acute distress, patient oriented x3, no limitations, healthy appearing, alert and well nourished HENMT: COMMON NORMALS: normocephalic and atraumatic HEAD & SCALP: normocephalic and atraumatic Neck/C-Spine: COMMON NORMALS: supple and no meningeal signs OTHER: ACDF. Tender to palpation of bilateral paracervical muscles. Range of motion is intact but limited secondary to pain, this is noted with lateral rotation. No step-off deformity, no signs of trauma. No overlying skin changes Resp: COMMON NORMALS: normal respiratory effort, No use of accessory muscles and clear to auscultation bilaterally AUSCULTATION: clear to auscultation bilaterally Cardio: COMMON NORMALS: regular rate and regular rhythm RATE: regular rate RHYTHM: regular rhythm Extremity: COMMON NORMALS: normal to inspection, full ROM, capillary refill normal, no joint enlargement and no clubbing, cyanosis or edema Neuro: COMMON NORMALS: patient oriented x3, moves all extremities, no focal motor deficits and no sensory deficits noted SENSORIUM/ORIENTATION: Yes alert MENINGEAL SIGNS: Yes no meningeal signs Skin: COMMON NORMALS: no rashes or lesions noted GENERAL SKIN EXAM: no rashes or lesions noted Course Vital Signs: Vital signs: Vital Signs Temperature 98.3 F 05/20/25 11:45 Pulse Rate 81 05/20/25 11:45 Respiratory Rate 14 05/20/25 11:45 Blood Pressure 164/114 05/20/25 11:45 Pulse Oximetry 95 05/20/25 11:45 Oxygen Delivery Me thod Room Air 05/20/25 11:45 MDM - Neck Pain/Injury Medical Decision Making Patient presented with neck pain, history of ACDF. Describes it as stiffness on exam there is reproducible tenderness palpation but no concerning findings. X-ray shows intact hardware postoperatively. He had no neurological deficits to address. Has great relief of symptoms following IM medications here in the ED, suspect this is a cervical strain and he will treat symptomatically at home and return with any worse. Lab Data Radiology Impressions Cervical Spine X-Ray 05/20/25 12:39 IMPRESSION: 1. Solid interbody fusion at C5-C6 and C6-C7. 2. Stable C7-T1 moderate disc space narrowing with new minimal anterolisthesis. 3. Stable level cervical facet arthropathy as noted. All radiology interpretation(s) finalized by discharge Discharge Plan Discharge Patient Disposition: Home Clinical Impression: Cervical strain Condition: Stable Prescriptions: New ketorolac 10 mg tablet 10 mg PO Q8H PRN (Reason: pain) 5 Days Qty: 15 0RF methocarbamol 750 mg tablet 750 mg PO Q8H 5 Days Qty: 15 0RF Discontinued celecoxib [Celebrex] 100 mg capsule 100 mg PO BID Qty: 20 0RF cyclobenzaprine 5 mg tablet 5 mg PO TID PRN (Reason: muscle spasm) Qty: 10 0RF No Action Medrol (Andrés) 4 mg tablets,dose pack See Rx Instructions .ROUTE .COMPLEX Qty: 21 0RF Rx Instructions: orally per package directions prednisone 20 mg tablet 20 mg PO TID Qty: 15 0RF Rx Instructions: 1 p.o. 3 times daily x3 days, 1 p.o. twice daily x2 days, 1 p.o. daily x2 days tramadol 50 mg tablet 50 mg PO Q6H PRN (Reason: pain) Qty: 20 0RF Discharge Orders: Discharge ED (Routine); Ordered 05/20/25 Ordered By: Antione Nunn Referrals: Racheal Rollins APN [Primary Care Provider, Nurse Practitioner] Patient Instructions: Patient Portal & Jb Instructions Activity Restrictions/Additional Instructions: Discharge Instructions: Cervical Muscle Strain Diagnosis: You were diagnosed with cervical muscle strain (neck muscle strain). Your cervical spine x-ray was normal and showed no problems with your previous spinal fusion hardware. What is cervical muscle strain? Cervical muscle strain is an injury to the muscles and soft tissues in your neck. This is a common condition that typically improves with proper treatment and self-care. Most people with acute neck pain experience significant improvement within the first 2-3 months. Your Medications: You have been prescribed the following medications to help manage your pain: - Robaxin (methocarbamol): Take 1,500 mg (1? tablets of 1,000 mg) by mouth four times daily for the first 48-72 hours, then reduce to 1,000 mg (1 tablet) four times daily as your symptoms improve. This is a muscle relaxant that helps relieve muscle spasm. - Toradol (ketorolac): Take 10 mg by mouth every 4-6 hours as needed for pain. Do not exceed 40 mg in 24 hours. Do not take this medication for more than 5 days total. Important Medication Warnings: - Robaxin may cause drowsiness or dizziness. Do not drive, operate machinery, or perform tasks requiring alertness until you know how this medication affects you. Avoid alcohol while taking this medication. - Toradol can cause stomach ulcers and bleeding. Take with food. Stop immediately and seek medical attention if you develop severe stomach pain, black or bloody stools, or vomit blood or material that looks like coffee grounds. - Do not take other NSAIDs (such as ibuprofen, naproxen, or aspirin) while taking Toradol, as this increases your risk of serious side effects. Home Care Instructions: Activity: - Stay active and avoid prolonged bed rest. Remaining active promotes healing. - Avoid activities that worsen your pain, but do not completely restrict neck movement. - Gentle range of motion exercises within a comfortable range are encouraged. - You may gradually return to your normal activities as tolerated. Pain Management: - Apply ice packs wrapped in a towel to your neck for 20-30 minutes, 3-4 times daily for the first few days to help reduce pain and swelling. - After the first few days, you may use heat if it provides more relief than ice. - Maintain good posture when sitting and standing. Sleep: - Use a supportive pillow that keeps your neck in a neutral position. - Avoid sleeping on your stomach. When to Seek Immediate Medical Attention: Return to the emergency department or call 911 if you develop any of the following: - Weakness, numbness, or tingling in your arms or legs - Loss of bowel or bladder control - Difficulty walking or loss of balance - Severe headache or fever - Increasing neck pain despite medication - Signs of medication side effects (severe stomach pain, black stools, vomiting blood, difficulty breathing, rash) Follow-Up: - Follow up with your primary care physician within 1-2 weeks if your symptoms are not improving. - If your pain persists beyond a few weeks, you may benefit from physical therapy or further evaluation. Additional Information: Most cases of acute neck strain improve significantly within the first few weeks with proper treatment. Continue to move your neck gently and stay active to promote recovery. If you have any questions or concerns, contact your healthcare provider. Print Language: Czech Coding Level of Care Code ED [employer] for Lala Mahan
[2025-05-20] MEDS: orphenadrine 30 mg/mL Inj 2 mL 60 MG IM (13:40)
--- NOTE | 2025-05-20 13:45 | PC.NURSE ---
Assumed pt. care at 1315 pt. given meds. pt. reports having neck pain that has increased over the past few days and states he thought he slept wrong on it and has been applying heat to it.
[2025-05-20 15:02] VITALS: BP 164/114; PULSE 81; O2SAT 95
== END 2025-05-20 15:03 | disposition home or self-care (01) ==
PROVIDERS: Emergency Provider Physician Assistant; PCP Nurse Practitioner Family
DX: S16.1XXA Strain of muscle, fascia and tendon at neck level, initial encounter (principal); X58.XXXA Exposure to other specified factors, initial encounter
CPT/HCPCS: 72040; 96372; 99284; J1100; J1885; J2360